=== PATIENT | female | born 1960 ===

== ENCOUNTER 2017-04-26 14:00 | Emergency (ER) | payer OTHER, SELFPAY ==
[2017-04-26 14:02] VITALS: BMI 30.2
[2017-04-26 14:04] VITALS: BP 125/69; PULSE 68; RESP 17; TEMP 98.1; O2SAT 96
--- NOTE | 2017-04-26 14:56 | ED PDOC ---
HPI: Female Pain Time Seen by Provider: 04/26/17 14:48 Chief Complaint (Nursing): Female Genitourinary Chief Complaint (Provider): uti History Per: Patient History/Exam Limitations: no limitations Associated Symptoms: denies: Fever, Chills, Nausea, Vomiting, Diarrhea, Loss Of Appetite, Back Pain, Chest Pain, Constipation, Urinary Symptoms Additional Complaint(s): 56yo F in Ed for evla of 2weeks of suprapubuic pain, increased urination and some back pain no vaingla d/c no painful coitus no vaignal lesions Past Medical History Reviewed: Historical Data, Nursing Documentation, Vital Signs Vital Signs: Last Vital Signs Temp 98.1 F 04/26/17 14:02 Pulse 68 04/26/17 14:02 Resp 17 04/26/17 14:02 BP 125/69 04/26/17 14:02 Pulse Ox 96 04/26/17 14:02 - Medical History PMH: No Chronic Diseases - Surgical History Surgical History: Cholecystectomy - Family History Family History: States: No Known Family Hx - Immunization History Hx Tetanus Toxoid Vaccination: No Hx Influenza Vaccination: No Hx Pneumococcal Vaccination: No - Home Medications Home Medications: Ambulatory Orders Medication Instructions Recorded Naproxen 500 mg PO BID PRN #30 tablet 01/28/16 Nitrofurantoin Macrocrystals 100 mg PO BID #14 cap 04/26/17 [Macrobid] - Allergies Allergies/Adverse Reactions: Allergies Allergy/AdvReac Type Severity Reaction Status Date / Time No Known Allergies Allergy Verified 04/26/17 14:21 Review of Systems ROS Statement: Except As Marked, All Systems Reviewed And Found Negative Genitourinary Female: Positive for: Dysuria Physical Exam - Reviewed Nursing Documentation Reviewed: Yes Vital Signs Reviewed: Yes - Physical Exam Appears: Positive for: Well, Non-toxic, No Acute Distress Skin: Positive for: Normal Color, Warm, DRY ENT: Positive for: Normal ENT Inspection Cardiovascular/Chest: Positive for: Regular Rate, Rhythm Respiratory: Positive for: CNT, Normal Breath Sounds Gastrointestinal/Abdominal: Positive for: Bowel Sounds, Soft, Tenderness ( suprapubic) Pelvic Exam: Positive for: External Exam Normal, Speculum Exam Normal, Bimanual Exam Normal Back: Positive for: Normal Inspection. Negative for: L CVA Tenderness, R CVA Tenderness Extremity: Positive for: Normal ROM Neurologic/Psych: Positive for: Alert, Oriented - ECG O2 Sat by Pulse Oximetry: 96 Medical Decision Making Medical Decision Making: dx: UTI tx: macorbid and fu with pmd sent for culture Disposition - Clinical Impression Clinical Impression: Urinary tract infection - Patient ED Disposition Is Patient to be Admitted: No Counseled Patient/Family Regarding: Diagnosis, Need For Followup, Rx Given - Disposition Disposition: Routine/Home Disposition Time: 14:57 Condition: STABLE Prescriptions: Nitrofurantoin Macrocrystals [Macrobid] 100 mg PO BID #14 cap Instructions: Urinary Tract Infection in Women (ED) Forms: [facility] (Turkmen) Print Language: FAROESE
== END 2017-04-26 15:25 | disposition home or self-care (01) ==
LOC: H.ER 14:00
DX: N39.0 Urinary tract infection, site not specified (principal)

== ENCOUNTER 2017-09-05 12:51 | Emergency (ER) | payer SELFPAY ==
[2017-09-05 13:11] VITALS: BP 126/63; RESP 16; TEMP 98.1; O2SAT 95
--- NOTE | 2017-09-05 13:28 | ED PDOC ---
HPI: CCC, URI, Sore Throat Time Seen by Provider: 09/05/17 13:20 Chief Complaint (Nursing): Chest Pain History Per: Patient Onset/Duration Of Symptoms: Days (2) Current Symptoms Are (Timing): Still Present Associated Symptoms: Cough, Sputum. denies: Fever Severity: Mild Additional Complaint(s): Cough productivew green sputum assoc with right sided chest pain and right neck pain since yesterday. No fever or SOB Past Medical History Vital Signs: Last Vital Signs Temp 98.1 F 09/05/17 13:05 Pulse 80 09/05/17 13:05 Resp 16 09/05/17 13:05 BP 126/63 09/05/17 13:05 Pulse Ox 95 09/05/17 13:28 - Medical History PMH: Diabetes - Surgical History Surgical History: Cholecystectomy - Family History Family History: States: Unknown Family Hx - Immunization History Hx Tetanus Toxoid Vaccination: No Hx Influenza Vaccination: No Hx Pneumococcal Vaccination: No - Home Medications Home Medications: Ambulatory Orders Medication Instructions Recorded Azithromycin [Zithromax] 250 mg PO DAILY #6 tab 09/05/17 Naproxen [Naprosyn] 500 mg PO Q12H #20 tab 09/05/17 - Allergies Allergies/Adverse Reactions: Allergies Allergy/AdvReac Type Severity Reaction Status Date / Time No Known Allergies Allergy Verified 09/05/17 13:05 Review of Systems ROS Statement: Except As Marked, All Systems Reviewed And Found Negative Respiratory: Positive for: Cough, Pleuritic Pain Physical Exam - Reviewed Nursing Documentation Reviewed: Yes Vital Signs Reviewed: Yes - Physical Exam Appears: Positive for: Non-toxic, No Acute Distress Head Exam: Positive for: ATRAUMATIC, NORMAL INSPECTION, NORMOCEPHALIC Skin: Positive for: Normal Color, Warm, DRY Eye Exam: Positive for: EOMI, Normal appearance, PERRL ENT: Positive for: Normal ENT Inspection Neck: Positive for: Normal, Painless ROM Cardiovascular/Chest: Positive for: Regular Rate, Rhythm Respiratory: Positive for: Rhonchi. Negative for: Wheezing, Respiratory Distress Gastrointestinal/Abdominal: Positive for: Normal Exam, Bowel Sounds, Soft Back: Positive for: Normal Inspection Extremity: Positive for: Normal ROM Neurologic/Psych: Positive for: Alert, Oriented - ECG O2 Sat by Pulse Oximetry: 95 Disposition - Clinical Impression Clinical Impression: Bronchitis - Patient ED Disposition Is Patient to be Admitted: No Counseled Patient/Family Regarding: Studies Performed, Diagnosis, Need For Followup, Rx Given - Disposition Referrals: [facility] [Outside] Disposition: Routine/Home Disposition Time: 14:12 Condition: FAIR Prescriptions: Azithromycin [Zithromax] 250 mg PO DAILY #6 tab Naproxen [Naprosyn] 500 mg PO Q12H #20 tab Instructions: Acute Bronchitis (ED) Forms: [employer] (Uzbek) Print Language: TAMAZIGHT
--- NOTE | 2017-09-05 14:16 | RAD ---
HISTORY: cough COMPARISON: No prior. TECHNIQUE: Chest PA and lateral FINDINGS: LUNGS: No active pulmonary disease. PLEURA: No significant pleural effusion identified. No pneumothorax apparent. CARDIOVASCULAR: Normal. OSSEOUS STRUCTURES: No significant abnormalities. VISUALIZED UPPER ABDOMEN: Normal. OTHER FINDINGS: None. IMPRESSION: No active disease.
[2017-09-05 18:47] VITALS: PULSE 72
--- NOTE | 2017-09-06 08:52 | CARD ---
APPROVED REPORT EKG Measurement Heart [id number] <Conclusion> Normal sinus rhythm Possible Left atrial enlargement Incomplete right bundle branch block Borderline ECG
== END 2017-09-05 18:48 | disposition home or self-care (01) ==
LOC: H.ER 12:51
DX: J40 Bronchitis, not specified as acute or chronic (principal); E11.9 Type 2 diabetes mellitus without complications

== ENCOUNTER 2017-09-08 21:56 | Emergency (ER) | payer SELFPAY ==
[2017-09-08 22:02] VITALS: BP 162/91; PULSE 92; RESP 16; TEMP 98.8; O2SAT 97
--- NOTE | 2017-09-08 22:59 | ED PDOC ---
HPI: CCC, URI, Sore Throat Time Seen by Provider: 09/08/17 22:03 Chief Complaint (Nursing): Cough, Cold, Congestion Chief Complaint (Provider): URI History Per: Patient Additional Complaint(s): 57yo female, PMH of DM, presents to ED with complaints of continued dry cough, clogged ear sensation, nasal congestion, despite starting antibiotics. Pt seen and evaluated here in the ED on 09/05 for the same complaints. Pt diagnosed with bronchitis and started on Zithro and Naproxen. Pt has been compliant on her meds but report symptoms continue and are worse at night. Past Medical History Reviewed: Nursing Documentation, Vital Signs Vital Signs: Last Vital Signs Temp 98.8 F 09/08/17 21:59 Pulse 92 H 09/08/17 21:59 Resp 16 09/08/17 21:59 BP 162/91 H 09/08/17 21:59 Pulse Ox 97 09/08/17 21:59 - Medical History PMH: Diabetes - Surgical History Surgical History: Cholecystectomy - Family History Family History: States: Unknown Family Hx - Living Arrangements Living Arrangements: With Family - Social History Current smoker - smoking cessation education provided: No Alcohol: None Drugs: Denies - Immunization History Hx Tetanus Toxoid Vaccination: No Hx Influenza Vaccination: No Hx Pneumococcal Vaccination: No - Home Medications Home Medications: Ambulatory Orders Medication Instructions Recorded Azithromycin [Zithromax] 250 mg PO DAILY #6 tab 09/05/17 Naproxen [Naprosyn] 500 mg PO Q12H #20 tab 09/05/17 Methylprednisolone [Medrol Dose 4 mg PO DAILY #21 mg 09/08/17 Pack (21 tabs)] Promethazine HCl/Codeine 5 ml PO HS #80 ml 09/08/17 [Prometh-Codein 6.25-10 mg/5 ml] - Allergies Allergies/Adverse Reactions: Allergies Allergy/AdvReac Type Severity Reaction Status Date / Time No Known Allergies Allergy Verified 09/08/17 21:58 Curb-65 Severity Score - CURB-65 Severity Score Confusion: No Bun >19mg/dl (>7mmol/L): No Respiratory Rate greater than/equal to 30: No Systolic BP <90 or Diastolic BP less than/equal 60mmHg: No Age >64: No Curb-65 Score: 0 Percentage 30-day mortality: 0.6% Review of Systems ROS Statement: Except As Marked, All Systems Reviewed And Found Negative ENT: Positive for: Nose Congestion Respiratory: Positive for: Cough Physical Exam - Reviewed Nursing Documentation Reviewed: Yes Vital Signs Reviewed: Yes - Physical Exam Appears: Positive for: Well, Non-toxic, No Acute Distress Head Exam: Positive for: ATRAUMATIC, NORMAL INSPECTION, NORMOCEPHALIC Skin: Positive for: Normal Color, Warm, DRY Eye Exam: Positive for: EOMI, Normal appearance, PERRL ENT: Positive for: Normal ENT Inspection Neck: Positive for: Normal, Painless ROM Cardiovascular/Chest: Positive for: Regular Rate, Rhythm Respiratory: Positive for: CNT, Normal Breath Sounds Gastrointestinal/Abdominal: Positive for: Normal Exam, Bowel Sounds, Soft Back: Positive for: Normal Inspection Extremity: Positive for: Normal ROM Neurologic/Psych: Positive for: Alert, Oriented - ECG O2 Sat by Pulse Oximetry: 97 Medical Decision Making Medical Decision Making: Pt educated on URI and Viral Syndrome Advised to continue on RX meds as directed, supportive care measures discussed as well Disposition - Clinical Impression Clinical Impression: Bronchitis - Patient ED Disposition Is Patient to be Admitted: No - Disposition Disposition: Routine/Home Disposition Time: 23:03 Condition: FAIR Prescriptions: Methylprednisolone [Medrol Dose Pack (21 tabs)] 4 mg PO DAILY #21 mg Promethazine HCl/Codeine [Prometh-Codein 6.25-10 mg/5 ml] 5 ml PO HS #80 ml Instructions: Acute Bronchitis (ED) Forms: [employer] (Yakut) Print Language: DIVEHI
== END 2017-09-08 22:52 | disposition home or self-care (01) ==
LOC: H.ER 21:56
DX: J40 Bronchitis, not specified as acute or chronic (principal); E11.9 Type 2 diabetes mellitus without complications

== ENCOUNTER 2018-02-25 13:14 | Emergency (ER) | payer SELFPAY ==
[2018-02-25 13:44] VITALS: BP 134/68; PULSE 74; RESP 18; TEMP 98; O2SAT 99
--- NOTE | 2018-02-25 17:19 | ED PDOC ---
HPI: General Adult Time Seen by Provider: 02/25/18 16:24 Chief Complaint (Nursing): ENT Problem Chief Complaint (Provider): ENT Problem History Per: Patient History/Exam Limitations: no limitations Onset/Duration Of Symptoms: Days (3x) Have you had recent travel within the past 21 days to any of the following countries: [place], [place], [place] or [place]?: No Current Symptoms Are (Timing): Better Additional Complaint(s): 57 year old female presents to the ED complaining of facial pain, headache, and green nasal congestion onset 3 days ago. Reports of associated symptoms of mild cough and sore throat. States she took Tylenol and over the counter cold medication without relief. Denies fever, head injuries, hemoptysis, sick contacts and recent travel. PMD: No Family Provider Past Medical History Reviewed: Historical Data, Nursing Documentation, Vital Signs Vital Signs: Last Vital Signs Temp 98.0 F 02/25/18 13:41 Pulse 74 02/25/18 13:41 Resp 18 02/25/18 13:41 BP 134/68 02/25/18 13:41 Pulse Ox 99 02/25/18 17:24 - Medical History PMH: Diabetes - Surgical History Surgical History: Cholecystectomy - Family History Family History: States: Unknown Family Hx - Immunization History Hx Tetanus Toxoid Vaccination: No Hx Influenza Vaccination: No Hx Pneumococcal Vaccination: No - Home Medications Home Medications: Ambulatory Orders Medication Instructions Recorded Azithromycin [Zithromax] 250 mg PO DAILY #6 tab 09/05/17 Naproxen [Naprosyn] 500 mg PO Q12H #20 tab 09/05/17 Methylprednisolone [Medrol Dose 4 mg PO DAILY #21 mg 09/08/17 Pack (21 tabs)] Promethazine HCl/Codeine 5 ml PO HS #80 ml 09/08/17 [Prometh-Codein 6.25-10 mg/5 ml] Amoxicillin/Clavulanate [Augmentin 1 tab PO BID #20 tab 02/25/18 500 MG-125 MG] Fluticasone Propionate [Flonase] 2 spr NS DAILY PRN #1 bottle 02/25/18 - Allergies Allergies/Adverse Reactions: Allergies Allergy/AdvReac Type Severity Reaction Status Date / Time No Known Allergies Allergy Verified 09/08/17 21:58 Review of Systems ROS Statement: Except As Marked, All Systems Reviewed And Found Negative ENT: Positive for: Nose Congestion (thick green), Throat Pain Respiratory: Positive for: Cough (mild) Musculoskeletal: Positive for: Other (facial pain) Neurological: Positive for: Headache. Negative for: Other (head injury) Physical Exam - Reviewed Nursing Documentation Reviewed: Yes Vital Signs Reviewed: Yes - Physical Exam Appears: Positive for: Well, Non-toxic, No Acute Distress Head Exam: Positive for: ATRAUMATIC, NORMAL INSPECTION, NORMOCEPHALIC Skin: Positive for: Normal Color, Warm, Dry Eye Exam: Positive for: EOMI, Normal appearance, PERRL ENT: Positive for: Other (minimal malar tenderness bilateral). Negative for: TM Is/Are (erythema and bulging), Pharyngeal Erythema, Tonsillar Exudate, Tonsillar Swelling Cardiovascular/Chest: Positive for: Regular Rate, Rhythm. Negative for: Murmur Respiratory: Positive for: Normal Breath Sounds. Negative for: Decreased Breath Sounds, Accessory Muscle Use, Respiratory Distress Neurologic/Psych: Positive for: Alert, Oriented (x3). Negative for: Aphasia, Facial Droop - ECG O2 Sat by Pulse Oximetry: 99 (RA) Pulse Ox Interpretation: Normal Medical Decision Making Medical Decision Making: Clinical Impression: Sinusitis Upon provider evaluation patient is medically stable, and requires no further treatment in the ED at this time. Patient will be discharged with Augmentin 500mg- 125mg, Flonase spr for allergy. Counseling was provided and all questions were answered regarding diagnosis and need for follow up with PMD. There is agreement to discharge plan. Return if symptoms persist or worsen. Scribe Attestation: Documented by Simona Vines, acting as a scribe for Gorge Bowman PA-C Provider Scribe Attestation: All medical record entries made by the Scribe were at my direction and personally dictated by me. I have reviewed the chart and agree that the record accurately reflects my personal performance of the history, physical exam, medical decision making, and the department course for this patient. I have also personally directed, reviewed, and agree with the discharge instructions and disposition. Disposition - Clinical Impression Clinical Impression: Sinusitis - Patient ED Disposition Is Patient to be Admitted: No - Disposition Referrals: [facility] [Outside] Disposition: Routine/Home Disposition Time: 16:54 Condition: STABLE Additional Instructions: Follow up with PMD for further evaluation Return to ED immediately if symptoms worsen Prescriptions: Amoxicillin/Clavulanate [Augmentin 500 MG-125 MG] 1 tab PO BID #20 tab Fluticasone Propionate [Flonase] 2 spr NS DAILY PRN #1 bottle PRN Reason: Allergy Symptoms Instructions: Sinusitis, Adult (DC) Forms: [employer] (American) Print Language: ARMENIAN
== END 2018-02-25 19:12 | disposition home or self-care (01) ==
LOC: H.ER 13:14
DX: J32.9 Chronic sinusitis, unspecified (principal); E11.9 Type 2 diabetes mellitus without complications; Z88.0 Allergy status to penicillin

== ENCOUNTER 2018-04-15 09:39 | Day surgery (SDC) | payer SELFPAY ==
[2018-04-15] MEDS ORDERED: Lactated Ringer's 500 ML IV ONE (10:25)
[2018-04-15] MEDS ORDERED: Midazolam 2 MG/2 ML VIAL ONE (12:38)
[2018-04-15] MEDS ORDERED: Propofol 10 mg/ml Inj (20 ML) ONE (12:39)
[2018-04-15 13:06] VITALS: TEMP 97
[2018-04-15 13:16] VITALS: BP 110/65; PULSE 70; RESP 15; O2SAT 99
== END 2018-04-15 13:44 | disposition home or self-care (01) ==
LOC: H.ENDO 09:39
PROVIDERS: ATTEND Internal Medicine Gastroenterology
DX: Z12.11 Encounter for screening for malignant neoplasm of colon (principal); E11.9 Type 2 diabetes mellitus without complications; E78.5 Hyperlipidemia, unspecified; Z86.73 Personal history of transient ischemic attack (TIA), and cerebral infarction without residual deficits; K64.0 First degree hemorrhoids
CPT/HCPCS: 45378; 82948; J2250; J2704; J7120

== ENCOUNTER 2018-04-17 17:11 | Emergency (ER) | payer SELFPAY ==
[2018-04-17 17:17] VITALS: BP 127/69; PULSE 61; RESP 16; TEMP 98.1; O2SAT 99
--- NOTE | 2018-04-17 19:21 | ED PDOC ---
HPI: Abdomen Time Seen by Provider: 04/17/18 17:58 Chief Complaint (Nursing): GI Problem Chief Complaint (Provider): abdominal and rectal pain History Per: Patient History/Exam Limitations: no limitations Onset/Duration Of Symptoms: Days (x2) Current Symptoms Are (Timing): Still Present Associated Symptoms: denies: Fever, Chills, Nausea, Vomiting, Diarrhea Additional Complaint(s): Clifford Cueva is a 57 year old female, with a past medical history of diabetes, who presents to the emergency department for evaluation of rectal and abdominal pain onset for x2 days. Patient reports she had a colonoscopy done by Dr. Santiago on Saturday which showed non-bleeding internal hemorrhoids. Patient has had similar symptoms in the past but not as severe which prompted concern for ED visit. She denies any bleeding, fever, chills, nausea, vomit, diarrhea or other medical complaints. PMD: None provided. Past Medical History Reviewed: Historical Data, Nursing Documentation, Vital Signs Vital Signs: Last Vital Signs Temp 98.1 F 04/17/18 17:15 Pulse 61 04/17/18 17:15 Resp 16 04/17/18 17:15 BP 127/69 04/17/18 17:15 Pulse Ox 99 04/17/18 17:15 - Medical History PMH: Diabetes, Hypercholesterolemia Denies: Chronic Kidney Disease - Surgical History Surgical History: Cholecystectomy - Family History Family History: States: Unknown Family Hx - Social History Current smoker - smoking cessation education provided: No Alcohol: None Drugs: Denies - Immunization History Hx Tetanus Toxoid Vaccination: No Hx Influenza Vaccination: No Hx Pneumococcal Vaccination: No - Home Medications Home Medications: Ambulatory Orders Medication Instructions Recorded Atorvastatin [Lipitor] 20 mg PO DAILY 04/15/18 Insulin Human Isophane (NPH) 20 unit SQ DAILY 04/15/18 [Novolin N] MetFORMIN [glucOPHAGE] 1,000 mg PO BID 04/15/18 - Allergies Allergies/Adverse Reactions: Allergies Allergy/AdvReac Type Severity Reaction Status Date / Time No Known Allergies Allergy Verified 09/08/17 21:58 Review of Systems ROS Statement: Except As Marked, All Systems Reviewed And Found Negative Constitutional: Negative for: Fever, Chills Gastrointestinal: Positive for: Abdominal Pain, Rectal Pain (no bleeding). Negative for: Nausea, Vomiting, Diarrhea Physical Exam - Reviewed Nursing Documentation Reviewed: Yes Vital Signs Reviewed: Yes - Physical Exam Appears: Positive for: Non-toxic, No Acute Distress Head Exam: Positive for: ATRAUMATIC, NORMAL INSPECTION, NORMOCEPHALIC Skin: Positive for: Normal Color, Warm, Dry Eye Exam: Positive for: Normal appearance, EOMI, PERRL Neck: Positive for: Painless ROM, Supple Cardiovascular/Chest: Positive for: Regular Rate, Rhythm. Negative for: Murmur Respiratory: Positive for: Normal Breath Sounds. Negative for: Respiratory Distress Gastrointestinal/Abdominal: Positive for: Normal Exam, Soft. Negative for: Tenderness Pelvic Exam: Positive for: External Exam Normal. Negative for: Blood Back: Positive for: Normal Inspection Extremity: Positive for: Normal ROM (upper and lower extremities). Negative for : Deformity, Swelling Neurologic/Psych: Positive for: Alert, Oriented. Negative for: Motor/Sensory Deficits - ECG O2 Sat by Pulse Oximetry: 99 (RA) Pulse Ox Interpretation: Normal Medical Decision Making Medical Decision Making: Time: 17:58 Initial Impression: rectal pain Initial Plan: --CMP --CBC w/ differential --Tylenol 325 mg tab 650 mg PO --Reevaluation 19:00 -Patient will be signed out to Dr. Correia pending labs and reevaluation. ----- Scribe Attestation: Documented by Alex Clifford, acting as a scribe for Vj Sheppard MD. Provider Scribe Attestation: All medical record entries made by the Scribe were at my direction and personally dictated by me. I have reviewed the chart and agree that the record accurately reflects my personal performance of the history, physical exam, medical decision making, and the department course for this patient. I have also personally directed, reviewed, and agree with the discharge instructions and disposition. Disposition - Disposition
--- NOTE | 2018-04-17 19:26 | ED PDOC ---
- Laboratory Results Result Diagrams: 04/17/18 19:30 04/17/18 19:30 - ECG O2 Sat by Pulse Oximetry: 99 (RA) Medical Decision Making Medical Decision Makin:00 -Patient endorsed to provider by Dr. Sheppard pending labs and reevaluation. 20:30 Patient in room, asleep, comfortable. Advised her to followup with Dr. Santiago as soon as possible. Given topical lido for symptom relief. Patient well appearing, stable upon discharge. Disposition - Clinical Impression Clinical Impression: Rectal pain - POA Present On Arrival: None - Disposition Referrals: Lorraine Santiago MD [Medical Doctor] - Main Hartley MD [Family Provider] - Disposition: Routine/Home Disposition Time: 20:30 Condition: STABLE Instructions: Acute Abdomen (Belly Pain) Forms: [facility] (Polish) Print Language: DANISH
[2018-04-17 19:36] LABS: BASO % 0.5 % (0.0-2.0); EOS # 0.4 K/uL (0.0-0.7); EOS % 6.8 % (0.0-4.0); HEMOGLOBIN 13.4 g/dL (12.0-16.0); LYMPH # 2.9 K/uL (1.0-4.3); LYMPH % 45.2 % (20.0-40.0); MEAN CELL VOLUME 88.7 fl (81.0-99.0); MEAN CORPUSCULAR HEMOGLOBIN 29.5 pg (27.0-31.0); MEAN CORPUSCULAR HGB CONC 33.3 g/dL (33.0-37.0); MEAN PLATELET VOLUME 10.1 fl (7.2-11.7); MONO # 0.5 K/uL (0.0-0.8); MONO % 7.5 % (0.0-10.0); NEUT # 2.6 K/uL (1.8-7.0); NRBC % 0.1 % (0.0-0.0); RBC 4.54 Mil/uL (3.80-5.20); RED CELL DISTRIBUTION WIDTH 14.4 % (11.5-14.5); WHITE BLOOD COUNT 6.4 K/uL (4.8-10.8)
[2018-04-17 19:45] LABS: ALB/GLOB RATIO 1.2 (1.0-2.1); ALBUMIN 4.1 g/dL (3.5-5.0); ALT/SGPT 28 U/L (9-52); AST/SGOT 28 U/L (14-36); BLOOD UREA NITROGEN 13 mg/dl (7-17); CALCIUM 9.3 mg/dL (8.4-10.2); GFR AFRICAN-AMERICAN > 60; GFR NON-AFRICAN AMERICAN > 60
[2018-04-17] MEDS ORDERED: Lidocaine 2% Jelly (Uro-Jet) TOP ONE (20:37)
[2018-04-17] MEDS ORDERED: Lidocaine 2% Jelly (Uro-Jet) ONE (20:50)
== END 2018-04-17 21:28 | disposition home or self-care (01) ==
LOC: H.ER 17:11
DX: K62.89 Other specified diseases of anus and rectum (principal); E11.9 Type 2 diabetes mellitus without complications; E78.00 Pure hypercholesterolemia, unspecified; Z79.84 Long term (current) use of oral hypoglycemic drugs